=== PATIENT | female | born 2000 | race Caucasian/White ===

== ENCOUNTER → 2021-04-02 | Outpatient (CLI) | payer SELFPAY ==
[~2021-04-02] MED LIST: BAMLANIVIMAB (EUA) 700 MG, ETESEVIMAB (EUA) 1,400 MG in SODIUM CHLORIDE 0.9% 50 ML IVPB NR; SODIUM CHLORIDE 0.9% 50 ML IVPB NR; SODIUM CHLORIDE 0.9% 500 ML 500 ML in EMPTY BAG 1 BAG IV PRN
[2021-04-02 14:06] VITALS: RESP 16
[2021-04-02 14:11] VITALS: BP 99/69
[2021-04-02 14:16] VITALS: PULSE 84; TEMP 98.2
== END | disposition home or self-care (01) ==
LOC: PROCWHC3 13:05
DX: U07.1 COVID-19 (principal)
CPT/HCPCS: 96360; J3490; M0245

== ENCOUNTER 2024-01-22 18:10 | Emergency (ER) | payer OTHER, BC ==
[2024-01-22 19:04] VITALS: TEMP 99
[2024-01-22] MEDS: ACETAMINOPHEN TAB 325 MG TAB PO STA (19:45)
--- NOTE | 2024-01-22 19:58 | ED ---
Head Injury HPI - General Chief complaint: Head Injury Stated complaint: Head Injury Time Seen by Provider: 01/22/24 19:55 Source: patient, RN notes reviewed Mode of arrival: ambulatory Limitations: no limitations - History of Present Illness Initial comments: 23-year-old female presenting to the ER with a chief complaint of a head injury. 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 She states today she was rolling the cart out to load someone's car and when lifting groceries off of the cart into the trunk of a metal cart swung and hit her on her right side of her head. She denies any loss of conscious or blood thinner use. She does report "seeing stars and feeling immediately nauseous". She does report since incident she has been feeling dizzy, nauseous and did have 1 episode of vomiting post incident. Patient denies any other injuries. Patient was seen at urgent care prior to arrival and diagnosed with a concussion. Urgent care sent patient here to rule out intracranial hemorrhage. No neck pain. Patient has not taken anything for her symptoms at this time. - Related Data Allergies/Adverse reactions: Allergies Allergy/AdvReac Type Severity Reaction Status Date / Time No Known Allergies Allergy Verified 04/02/21 11:58 Review of Systems ROS Statement: Those systems with pertinent positive or pertinent negative responses have been documented in the HPI. ROS Other: All systems not noted in ROS Statement are negative. Past Medical History Past Medical History: No Reported History Past Surgical History: No Surgical Hx Reported Past Psychological History: No Psychological Hx Reported Smoking Status: Never smoker Past Alcohol Use History: Occasional Past Drug Use History: None Reported General Exam Limitations: no limitations General appearance: alert, in no apparent distress Head exam: Present: atraumatic, normocephalic, normal inspection Eye exam: Present: normal appearance, PERRL, EOMI. Absent: scleral icterus, conjunctival injection, periorbital swelling Pupils: Present: normal accommodation ENT exam: Present: normal exam, normal oropharynx, mucous membranes moist, TM's normal bilaterally Neck exam: Present: normal inspection. Absent: tenderness, meningismus, lymphadenopathy Respiratory exam: Present: normal lung sounds bilaterally. Absent: respiratory distress, wheezes, rales, rhonchi, stridor Cardiovascular Exam: Present: regular rate, normal rhythm, normal heart sounds. Absent: systolic murmur, diastolic murmur, rubs, gallop, clicks Neurological exam: Present: alert, oriented X3, CN II-XII intact Skin exam: Present: warm, dry, intact, normal color. Absent: rash Course Vital Signs 01/22/24 01/22/24 18:59 22:03 Temperature 99 F Pulse Rate 86 59 L Respiratory 18 16 Rate Blood Pressure 146/78 124/82 O2 Sat by Pulse 98 99 Oximetry - Reevaluation(s) Reevaluation #1: 01/23/24 01:44 Shared decision making utilized. Risk-benefit ratio of radiation and CT scan discussed with patient. Patient is agreeable to continue with CT scan. Medical Decision Making - Medical Decision Making Was pt. sent in by a medical professional or institution (, PA, MECHANICAL ENGINEERING LECTURER, urgent care, hospital, or care home...) When possible be specific @ -Patient sent by urgent care for evaluation of head injury and CT scan. Did you speak to anyone other than the patient for history (EMS, parent, family, police, friend...)? What history was obtained from this source @ -No Did you review nursing and triage notes (agree or disagree)? Why? @ -I reviewed and agree with nursing and triage notes Were old charts reviewed (outside hosp., previous admission, EMS record, old EKG, old radiological studies, urgent care reports/EKG's, care home records)? Report findings @ -No old charts were reviewed Differential Diagnosis (chest pain, altered mental status, abdominal pain women, abdominal pain men, vaginal bleeding, weakness, fever, dyspnea, syncope, headache, dizziness, GI bleed, back pain, seizure, CVA, palpatations, mental health, musculoskeletal)? @ -Contusion, hematoma, intracranial hemorrhage, skull fracture, laceration, concussion this list is not meant to be all-inclusive EKG interpreted by me (3pts min.). @ -None done X-rays interpreted by me (1pt min.). @ -None done CT interpreted by me (1pt min.). @ -None done U/S interpreted by me (1pt. min.). @ -None done What testing was considered but not performed or refused? (CT, X-rays, U/S, labs)? Why? @ -None What meds were considered but not given or refused? Why? @ -None Did you discuss the management of the patient with other professionals (professionals i.e. , PA, MECHANICAL ENGINEERING LECTURER, lab, RT, psych nurse, child welfare social worker, yard coordinator, teacher, facilities officer, foster care case manager)? Give summary @ -No Was smoking cessation discussed for >3mins.? @ -No Was critical care preformed (if so, how long)? @ -No Were there social determinants of health that impacted care today? How? (Homelessness, low income, unemployed, alcoholism, drug addiction, transportation, low edu. Level, literacy, decrease access to med. care, longterm, rehab)? @ -No Was there de-escalation of care discussed even if they declined (Discuss DNR or withdrawal of care, Hospice)? DNR status @ -No What co-morbidities impacted this encounter? (DM, HTN, Smoking, COPD, CAD, Cancer, CVA, ARF, Chemo, Hep., AIDS, mental health diagnosis, sleep apnea, morbid obesity)? @ -None Was patient admitted / discharged? Hospital course, mention meds given and route, prescriptions, significant lab abnormalities, going to OR and other pertinent info. @ -Discharge. 23-year-old female presented the ER with a chief complaint of head injury. History and physical exam completed. Vitals within normal limits. Patient in no signs of acute distress. Tenderness to right parietal lobe. No overlying skin changes. No acute neurologic findings on exam. GCS 15. No other complaints. Due to patient complaining of dizziness, nausea and 1 episode of vomiting post incident CT will be performed. CT brain negative. Patient received p.o. Tylenol for pain control in the ER. Upon reevaluation, patient resting comfortably in exam room reporting mild improvement of headache. Results discussed with patient, all questions answered. Advise close follow-up with PCP. Strict return parameters discussed. Patient discharged stable condition. Patient verbally expressed understanding agree with care plan. Case discussed with the attending by Dr. Lujan. Undiagnosed new problem with uncertain prognosis? @ -No Drug Therapy requiring intensive monitoring for toxicity (Heparin, Nitro, Insulin, Cardizem)? @ -No Were any procedures done? @ -No Diagnosis/symptom? @ -Head injury Acute, or Chronic, or Acute on Chronic? @ -Acute Uncomplicated (without systemic symptoms) or Complicated (systemic symptoms)? @ -Uncomplicated Side effects of treatment? @ -No Exacerbation, Progression, or Severe Exacerbation? @ -No Poses a threat to life or bodily function? How? (Chest pain, [place], [place], pneumonia, PE, COPD, DKA, ARF, appy, cholecystitis, CVA, Diverticulitis, Homicidal, Suicidal, threat to staff... and all critical care pts) @ -No - Radiology Data Radiology results: report reviewed, image reviewed Disposition Clinical Impression: Head injury Disposition: HOME SELF-CARE Condition: Stable Additional Instructions: Follow-up with PCP in the next 1 to 2 days. Return to the ER for any new or worsening concerns. Is patient prescribed a controlled substance at d/c from ED?: No Referrals: Otis Oneill MD [Primary Care Provider] - 1-2 days Time of Disposition: 21:48
--- NOTE | 2024-01-22 21:29 | CT ---
EXAMINATION TYPE: CT brain wo con CT DLP: 1164.5 mGycm, Automated exposure control for dose reduction was used. DATE OF EXAM: 01/22/2024 8:00 PM COMPARISON: None.. CLINICAL INDICATION:Female, 23 years old with history of head injury, Head injury TECHNIQUE: Brain: Axial CT images of the brain were obtained with coronal and sagittal reformats created and rev iewed. Contrast used: None. Oral contrast used: None. FINDINGS: Extra-axial spaces: No abnormal extra-axial fluid collections. Basilar cisterns are patent. Ventricular system: Within normal limits. Cerebral parenchyma: No increased attenuation to suggest acute intraparenchymal hemorrhage. The gra y-white matter interface appears maintained. No significant atrophy. White matter unremarkable by C T. Cerebellum: No acute abnormality. Mass effect: No evidence of mass effect or midline shift. Intracranial vasculature: Unremarkable Soft tissues: No acute or concerning abnormality. Visualized orbits: Orbital contents appear grossly intact. Calvarium/osseous structures: No evidence of calvarial fracture. Paranasal sinuses and mastoid air cells: Clear. MRI is more sensitive for detecting acute processes such as infarct, and may be considered if clinica lly warranted. IMPRESSION: No acute intracranial CT abnormality. [facility], , 01/22/2024 9:27 PM
[2024-01-22 22:05] VITALS: BP 124/82; PULSE 59; RESP 16
== END 2024-01-22 22:04 | disposition home or self-care (01) ==
LOC: EC 18:10
CPT/HCPCS: 70450; 99283

== ENCOUNTER 2024-09-25 10:40 | Emergency (ER) | payer OTHER, BC ==
[2024-09-25 10:47] VITALS: TEMP 98.7
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
[2024-09-25 12:14] LABS: Basophils # (A) 0.05 10*3/uL (0.00-0.10); Basophils % (A) 0.5 %; Eosinophils # (A) 0.17 10*3/uL (0.04-0.35); Eosinophils % (A) 1.6 %; HCT 38.1 % (37.2-46.3); HGB 13.5 g/dL (12.0-15.0); Lymphocytes % (A) 21.4 %; MCH 28.5 pg (27.0-32.0); MCHC 35.4 g/dL (32.0-37.0); MCV 80.4 fL (80.0-97.0); Mean Platelet Volume 8.5 fL (9.5-12.2); Monocytes # (A) 0.63 10*3/uL (0.20-1.00); Monocytes % (A) 5.8 %; Neutrophils # (A) 7.57 10*3/uL (1.80-7.70); Neutrophils % (A) 70.2 %; Platelet Count 345 10*3/uL (140-440); RBC 4.74 10*6/uL (4.10-5.20); RDW 13.1 % (11.5-14.5); WBC 10.77 10*3/uL (4.50-10.00)
[2024-09-25 12:38] LABS: Partial Thromboplastin Time 23.1 sec (22.0-30.0); Prothrombin Time 10.8 sec (10.0-12.5)
[2024-09-25 12:39] LABS: ALT 46 U/L (4-34); AST 37 U/L (14-36); African American GFR (CKD) >90 (>60 ml/min/1.73 sqM); Albumin 4.4 g/dL (3.5-5.0); Alcohol <10 mg/dL; Alkaline Phosphatase 122 U/L (38-126); Anion Gap 12 mmol/L; Blood Urea Nitrogen 7 mg/dL (7-17); Calcium 9.5 mg/dL (8.4-10.2); Carbon Dioxide 25 mmol/L (22-30); Chloride 100 mmol/L (98-107); Glucose 238 mg/dL (74-99); Non-African American GFR(CKD) >90 (>60 ml/min/1.73 sqM); Potassium 4.5 mmol/L (3.5-5.1); Sodium 137 mmol/L (137-145); Total Bilirubin 0.6 mg/dL (0.2-1.3); Total Protein 7.6 g/dL (6.3-8.2)
[2024-09-25] MEDS: ACETAMINOPHEN TAB 500 MG TAB PO STA (12:58)
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
[2024-09-25 13:14] LABS: Amphetamine Screen,Urine Not Detected (NotDetected); Appearance,Urine Cloudy (Clear); Bacteria,Urine Rare /hpf; Barbiturate Screen,Urine Not Detected (NotDetected); Benzodiazepines Screen,Urine Not Detected (NotDetected); Bilirubin,Urine Negative (Negative); Blood,Urine Negative (Negative); Cocaine Screen,Urine Not Detected (NotDetected); Color,Urine Light Yellow; Glucose,Urine (UA) 3+ (Negative); Hyaline Casts,Urine 1 /lpf (0-2); Ketones,Urine Negative (Negative); Leukocyte Esterase,Urine Moderate (Negative); Methadone Screen, Urine Not Detected (NotDetected); Mucus,Urine Rare /hpf; Nitrite,Urine Negative (Negative); Opiate Screen,Urine Not Detected (NotDetected); Oxycodone Screen, Urine Not Detected (NotDetected); Phencyclidine Screen,Urine Not Detected (NotDetected); Protein,Urine Trace (Negative); RBC,Urine 4 /hpf (0-5); Specific Gravity,Urine 1.019 (1.001-1.035); Squamous Epithelial Cell,Urine 10 /hpf (0-4); Tricyclic Antidepressant,Urine Not Detected (NotDetected); Urn Cannabinoid Scrn Not Detected (NotDetected); Urobilinogen,Urine <2.0 mg/dL (<2.0); WBC,Urine 7 /hpf (0-5)
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
[2024-09-25 13:35] VITALS: RESP 18
[2024-09-25 14:51] VITALS: BP 147/79; PULSE 90
== END 2024-09-25 14:51 | disposition home or self-care (01) ==
LOC: EC 10:40
DX: R07.89 Other chest pain (principal); R10.9 Unspecified abdominal pain; M79.644 Pain in right finger(s); R73.9 Hyperglycemia, unspecified; V43.52XA Car driver injured in collision with other type car in traffic accident, initial encounter
CPT/HCPCS: 36415; 93005; 80053; 83605; 84484; 85025; 85610; 85730; 81001; 81025; 80306; 80320; 83036; 72170; 73130; 71045; 74177; 99285; Q9967